=== PATIENT | female | born 1925 | race African-American/Black ===

== ENCOUNTER → 2017-01-05 | Outpatient (CLI) | payer MEDICARE, BC ==
[~2017-01-05] MED LIST: ASPIRIN PO; BISA-LAX5 MG PO; CALCIUM 500 +1 EAC2 PO; DEMADEX; FUROSEMIDE40 MG PO; HYDROCODON-ACE1 EAC7 PO; IRON1 TAB.SA PO; KLOR-CON PO; LIBRIUM PO; LISINOPRIL-HCTZ1 T19 PO; LISINOPRIL2.5 MG PO; LISINOPRIL20 MG PO; MICRO-K PO; MICRO-K10 ME2 PO; NAMZARIC 28 MG1 EACH; REMERON SOLTAB15 M1 PO; SIMVASTATIN20 MG PO; TOPROL XL PO; [UNRECOGNIZED DRUG - OTHER]; [UNRECOGNIZED DRUG - OTHER] PO; [UNRECOGNIZED DRUG - REMARK] PO
--- NOTE | ~2017-01-05 | US37 ---
[facility] A Service of [facility] RADIOLOGY TEXT RESULTS PATIENT: OLIVER BEASLEY LOCATION: CNIV : [birth year] UNIT #: [id number] AGE: [address]: Daniel Zimmer MD SEX: F ORDER DR: [id number] [facility] [address] [place], [place] [address] [id number] O MR#: [id number] Acc #: [id number] NAME: OLIVER BEASLEY : 1925 SEX: F STUDY DATE/TIME: 01/05/2017 14:30 UNIT: CNIV ROOM: STUDY DESCRIPTION: US Carotid W/Doppler Bilateral Attending Physician: Daniel Zimmer Jr., M.D. Referring Physician: Daniel Zimmer Jr., M.D. Ordering Physician: Daniel Zimmer Jr., M.D. Primary Care Physician: Daniel Zimmer Jr., M.D. MEDICAL IMAGING REPORT This report is preliminary unless electronic signature is present EXAM Bilateral carotid duplex HISTORY Carotid artery stenosis. FINDINGS Duplex imaging of the carotid arteries was performed. The right common carotid artery is patent. Mild plaque is seen in the right internal carotid artery proximally. Velocity in the right common carotid is 73, internal is 61 and external is 76 cm/sec. Right ICA/CCA ratio is 0.8. On the left side, plaque is seen in the left common, internal and external carotid arteries. Velocity in the left common carotid is 92, internal is 156 proximally, 143 mid portion and 146 distally, external is 85 cm/sec. Left ICA/CCA ratio is 1.7. Antegrade flow is seen in the right and left vertebral arteries. IMPRESSION 1. Minimal plaque with less than 50% stenosis is seen in the right internal carotid artery. 2. 50% to 69% stenosis is seen in the left internal carotid artery. 3. Antegrade flow is seen in the right and left vertebral arteries. Dictated by... Jose Francisco Long M.D. THIS IS AN ELECTRONICALLY VERIFIED REPORT Jose Francisco Long M.D. at 01/06/2017 2:59 PM SA/psc [facility]. [facility] A Service of [facility] & [facility] RADIOLOGY TEXT RESULTS PATIENT: OLIVER BEASLEY LOCATION: CNIV : [birth year] UNIT #: [id number] AGE: [address]: Daniel Zimmer MD SEX: F ORDER DR: TD: 01/05/2017 22:23 JOB #: [id number] MEDICAL IMAGING REPORT Page 1 of 1 COPY
== END | disposition home or self-care (01) ==
LOC: CNIV 11-13 14:00
DX: I65.22 Occlusion and stenosis of left carotid artery (principal); I65.23 Occlusion and stenosis of bilateral carotid arteries
CPT/HCPCS: 93880

== ENCOUNTER → 2017-03-05 | Outpatient (CLI) | payer MEDICARE, BC ==
--- NOTE | ~2017-03-05 | HM ---
Unit #: [id number] #: [id number] Patient: OLIVER BEASLEY [id number] [facility]. [facility] [address], [place] [address] [id number] O MR#: [id number] NAME: OLIVER BEASLEY. : 1925 SEX: F STUDY DATE/TIME: 03/06/2017 UNIT: CE ROOM: STUDY DESCRIPTION: Holter monitor Attending Physician: Daniel Zimmer Jr., M.D. Referring Physician: Daniel Zimmer Jr., M.D. Primary Care Physician: Daniel Zimmer Jr., M.D. CARDIOLOGY REPORT EXAM Twenty-four hour Holter report. DATE APPLIED 03/05/2017 DATE SCANNED 03/06/[address] Daniel Zimmer READ BY [facility] CardiologyJessica M.D. REASON FOR THE STUDY Palpitations. FINDINGS Underlying rhythm is normal sinus rhythm with an average heart rate of 70 beats per minute, minimum heart rate of 46 beats per minute, and a maximum heart rate of 128 beats per minute. The minimum heart rate of 46 beats per minute is noted at 11:22 p.m. The maximum heart rate of 128 beats per minute is noted at 4:36 p.m. The patient had a 0.94 second pause noted at 11:10 p.m. The patient had 185 single multifocal premature ventricular complexes noted. The patient had 731 single premature atrial complexes noted. The patient had 3- to 6-beat runs of paroxysmal supraventricular tachycardia with heart rates ranging from 100 to 130 beats per minute. The patient did not record any symptoms. CONCLUSION 1. Underlying rhythm is normal sinus rhythm with an average heart rate of 70 beats per minute, minimum heart rate of 46 beats per minute and a maximum heart rate of 128 beats per minute. 2. No sustained atrial or ventricular arrhythmias noted. 3. No significant pauses noted. 4. Rare single multifocal premature ventricular complexes and premature atrial complexes noted. 5. The patient had 3- to 6-beat runs of paroxysmal supraventricular tachycardia with the heart rates ranging from 100 to 130 beats per minute. 6. The patient did not record any symptoms. Unit #: [id number] #: [id number] Patient: OLIVER BEASLEY Dictated by... Venus Urias TD: 03/06/2017 15:29 JOB #: [id number] CARDIOLOGY REPORT Page 1 of 1 X Jessica Arteaga MD <ELECTRONICALLY SIGNED> 03/14/17 [id number] HOLTER MONITOR REPORT
== END | disposition home or self-care (01) ==
LOC: CEKG 10:05
DX: R00.2 Palpitations (principal)
CPT/HCPCS: 93225; 93226